=== PATIENT | male | born 1995 | race Caucasian/White ===

== ENCOUNTER 2020-08-07 16:54 | Emergency (ER) | payer BC ==
[~2020-08-07] VITALS: Ht 177.8 cm; Wt 78.9 kg
--- NOTE | 2020-08-07 17:05 | NUR ---
at bedside for assessment
[2020-08-07] MEDS ORDERED: LIDOCAINE 2%-EPI 1:100,000 20 ML VIAL ONE (17:15)
[2020-08-07] MEDS ORDERED: TDAP DIPH,PERTUSS,TET VAC/PF 0.5 ML DISP.SYRIN IM ONE ×2 (17:15→17:18)
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
[2020-08-07] MEDS ORDERED: CEPH500T PO (17:24)
[2020-08-07] MEDS ORDERED: NAPR-1164 PO (17:25)
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
[2020-08-07 18:04] VITALS: BP 119/88
== END 2020-08-07 18:04 | disposition home or self-care (01) ==
LOC: ER 16:56
DX: S81.011A Laceration without foreign body, right knee, initial encounter (principal); X99.1XXA Assault by knife, initial encounter; Y92.89 Other specified places as the place of occurrence of the external cause; Y99.8 Other external cause status
CPT/HCPCS: 90715; A4217; A4663